=== PATIENT | male | born 1995 | race Caucasian/White ===

== ENCOUNTER 2020-12-02 05:09 | Emergency (ER) | payer OTHER ==
[~2020-12-02] VITALS: Ht 177.8 cm; Wt 130.6 kg
[2020-12-02 05:22] VITALS: BP 133/95
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
== END 2020-12-02 05:27 ==
LOC: ER FS 05:15
DX: Z04.1 Encounter for examination and observation following transport accident (principal)
CPT/HCPCS: 99283